=== PATIENT | female | born 1995 | race Caucasian/White ===

== ENCOUNTER 2016-07-04 21:10 | Emergency (ER) | payer OTHER ==
[~2016-07-04] VITALS: Ht 162.6 cm; Wt 70.3 kg
[2016-07-04 21:15] VITALS: BP 135/90
--- NOTE | 2016-07-04 22:33 | NUR ---
Patient ambulated to bed 04.
--- NOTE | 2016-07-04 22:36 | NUR ---
PATIENT PRESENTS TO ED WITH WEAKNESS, FATIGUE AND NAUSEA X 4 DAYS . PT DENIES V/D; SKIN IS PINK/WARM/DRY; AAOX4 WITH EVEN AND STEADY GAIT; LUNGS CLEAR BL; HR EVEN AND REGULAR; PT DENIES ANY FEVER, CP, SOB, OR COUGH AT THIS TIME; PATIENT STATES PAIN OF 0/10 AT THIS TIME; VSS; PATIENT POSITIONED FOR COMFORT; HOB ELEVATED; BEDRAILS UP X2; BED DOWN. ER MD MADE AWARE OF PT STATUS.
--- NOTE | 2016-07-04 22:38 | NUR ---
Srinivas ashley in [facility] - 07/04/16 at [address] Padgett evaluating patient at bedside.
--- NOTE | 2016-07-04 22:48 | NUR ---
Dr. Padgett evaluating patient at bedside.
--- NOTE | 2016-07-04 23:03 | NUR ---
LABS DRAWN AT BEDSIDE
[2016-07-05] MEDS ORDERED: cefTRIAXone 1,000 MG VIAL ONE (00:32)
--- NOTE | 2016-07-05 00:40 | NUR ---
PIV STARTED, ABX STARTED, INFUSING W/O PROBLEMS.
[2016-07-05 01:21] VITALS: BP 128/87
--- NOTE | 2016-07-05 01:22 | NUR ---
Patient discharged with v/s stable. Written and verbal after care instructions given and explained. Patient alert, oriented and verbalized understanding of instructions. Ambulatory with steady gait. All questions addressed prior to discharge. ID band removed. Patient advised to follow up with PMD. Rx of LEVOTHYROXINE SODIUM AND CIPRO given. Patient educated on indication of medication including possible reaction and side effects. Opportunity to ask questions provided and answered. DISCHARGED BY DR MAYO.
== END 2016-07-05 01:22 | disposition home or self-care (01) ==
LOC: MED 21:10
DX: N39.0 Urinary tract infection, site not specified (principal); E03.9 Hypothyroidism, unspecified; R03.0 Elevated blood-pressure reading, without diagnosis of hypertension
CPT/HCPCS: 36415; 80053; 81001; 81025; 82150; 83690; 84443; 85025; 87086; 96365; 99284; J0696; J7060

== ENCOUNTER 2018-03-24 10:19 | Emergency (ER) | payer OTHER ==
[~2018-03-24] VITALS: Ht 160 cm; Wt 79.4 kg
[2018-03-24 10:26] VITALS: BP 124/83
[2018-03-24 11:23] VITALS: BP 124/83
== END 2018-03-24 11:22 | disposition home or self-care (01) ==
LOC: MED 10:19
DX: R07.89 Other chest pain (principal); M25.512 Pain in left shoulder
CPT/HCPCS: 71045; 73030; 81002; 81025; 99284; Q0092